=== PATIENT | female | born 1975 | race Caucasian/White ===

== ENCOUNTER → 2016-04-21 | Outpatient (CLI) | payer OTHER ==
[~2016-04-21] MED LIST: ALBUTEROL; ALBUTEROL 0.5ML INH; ALBUTEROL 0.5ML NEB; ALBUTEROL0.83 MG/ML INH; ALBUTEROL17 GM INH; ALBUTEROL20 ml INH; AMOXICILLIN500 M1 PO; BACTRIM DS TABL1 TA2 PO; CIPRO PO; COUGH SYRU100 MG/5 M PO; DOXYCYCLINE HY100 M1 PO; DOXYCYCLINE HY100 M3 PO; GLUCOPHAGE500 MG PO; GLUCOTROL PO; HUMIBID-LA600 MG PO; JANUVIA PO; JANUVIA25 MG PO; LORTAB 5/500 TA1 TA2 PO; METFORMIN HCL500 M1 PO; NEURONTIN300 MG PO; NEXIUM PO; PHENERGAN DM1 ML PO; PHENERGAN W/CO120 ML PO; PHENERGAN25 MG PO; PHENTERMINE PO; PREDNISONE PO; PREDNISONE10 MG/DOSE PO; PYRIDIUM PO; ROBITUSSIN COU118 ML PO; SIMVASTATIN10 MG PO; SYMBICORT80 INH; TYLENOL325 M1 PO; VICTOZA0.6 MG/0.1 SQ; VITAMIN D350000 UNIT PO; ZITHROMAX PO; [UNRECOGNIZED DRUG - OTHER]; [UNRECOGNIZED DRUG - OTHER] PO
--- NOTE | ~2016-04-21 | NM19 ---
[facility] A Service of [facility] RADIOLOGY TEXT RESULTS PATIENT: BOLIVAR APODACA LOCATION: [facility] : 75 UNIT #: [id number] AGE: [address]: Gavino Morris MD SEX: F ORDER DR: [id number] [facility] [address] [place], [place] [address] [id number] O MR#: [id number] Acc #: [id number] NAME: BOLIVAR APODACA : 1975 SEX: F STUDY DATE/TIME: 04/21/2016 10:04 UNIT: [facility] ROOM: STUDY DESCRIPTION: NM Gastric Emptying Study Attending Physician: Gavino Morris M.D. Referring Physician: Gavino Morris M.D. Ordering Physician: Gavino Morris M.D. Primary Care Physician: Tiki Simmons M.D. MEDICAL IMAGING REPORT This report is preliminary unless electronic signature is present EXAM Solid phase gastric emptying study. DATE 05/01/2016 HISTORY 40-year-old female with complaints of left upper quadrant and epigastric pain, nausea and vomiting after heavy meals, diarrhea, bloating and early satiety. Patient states symptoms began approximately 9 months ago but have gotten worse over the past [address] abdomen and pelvis with contrast 09/15/2015. FINDINGS Following the ingestion of 534 mcCi of technetium 99m sulfur colloid in 2 scrambled eggs with water, anterior and posterior planar images were obtained of the stomach and time-activity curve was generated. At 15 minutes, there is 20% emptying with 80% remaining. At 30 minutes, there is 41% emptying with 59% remaining. At 45 minutes, there is 58% emptying with 42% remaining. At 60 minutes, there is 73% emptying with 27% remaining. At this institution, normal gastric emptying is 60% or greater by 2 hours. This suggests normal gastric emptying at the 1 hour timeframe. Additionally, the calculated T1/2 emptying time is 38 minutes, with normal T1/2 emptying at this institution being less than 90 minutes. IMPRESSION Normal solid phase gastric emptying study. There is 73% emptying at 60 minutes, with a T1/2 emptying time of 38 minutes. [facility] A Service of [facility] RADIOLOGY TEXT RESULTS PATIENT: BOLIVAR APODACA LOCATION: [facility] : 75 UNIT #: [id number] AGE: [address]: Gavino Morris MD SEX: F ORDER DR: Dictated by... Dora Norwood M.D. THIS IS AN ELECTRONICALLY VERIFIED REPORT Dora Norwood M.D. at 04/21/2016 11:56 AM TO/angel TD: 04/21/2016 11:37 JOB #: [id number] MEDICAL IMAGING REPORT COPY
== END | disposition home or self-care (01) ==
LOC: CNUC 08:35
DX: R10.13 Epigastric pain (principal)
CPT/HCPCS: 78264; A9541

== ENCOUNTER 2016-10-05 16:55 | Emergency (ER) | payer OTHER ==
[~2016-10-05] VITALS: Ht 162.6 cm; Wt 81.6 kg
[2016-10-05 17:35] LABS: URINE SOURCE CLEAN CATCH
[2016-10-05 17:42] LABS: URINE APPEARANCE CLEAR; URINE BILIRUBIN NEG (NEG); URINE BLOOD NEG (NEG); URINE COLOR YELLOW; URINE GLUCOSE >1000 MG/DL (NEG); URINE KETONE NEG (NEG); URINE LEUKOCYTE ESTERASE NEG (NEG); URINE NITRATE NEG (NEG); URINE PROTEIN NEG (NEG); URINE UROBILINOGEN 0.2 MG/DL (NEG)
[2016-10-05 17:45] LABS: BASOPHIL# 0.1 X10e3 (0-0.3); BASOPHIL% 0.9 % (0-2.5); EOSINOPHIL# 0.4 X10e3 (0-0.7); EOSINOPHIL% 3.7 % (0.0-7.0); HEMATOCRIT 44.2 % (35.0-45.0); HEMOGLOBIN 14.5 gm/dL (12.0-16.0); LYMPHOCYTE# 2.6 X10e3 (1.0-3.5); LYMPHOCYTE% 23.7 % (17.0-45.0); MEAN CELL VOLUME 89.9 FL (83-96); MEAN CORPUSCULAR HEMOGLOBIN 29.6 PG (28-34); MEAN CORPUSCULAR HGB CONC 32.9 g/dL (30-36); MEAN PLATELET VOLUME 8.8 FL (6.5-11.5); MONOCYTE# 0.7 X10e3 (0-1.0); MONOCYTE% 6.4 % (3.0-12.0); NEUTROPHIL# 7.3 X10e3 (1.5-7.1); NEUTROPHIL% 65.3 % (40-75); PLATELET COUNT 281 X10e3 (140-420); RED BLOOD COUNT 4.91 X10e (3.90-5.30); RED CELL DISTRIBUTION WIDTH 13.1 % (11.0-15.5); WHITE BLOOD COUNT 11.1 X10e3 (4.0-10.5)
[2016-10-05 17:46] LABS: DIFF IND NO
[2016-10-05 17:51] LABS: CULTURE INDICATED? NO
[2016-10-05 18:04] LABS: ALBUMIN SERUM 3.7 g/dL (3.5-5.0); ALKALINE PHOSPHATASE 74 U/L (32-92); ALT (SGPT) 15 U/L (10-40); AMYLASE 20 U/L (0-46); AST (SGOT) 21 U/L (10-42); BILIRUBIN, DIRECT <0.1 mg/dL (0.0-0.2); BILIRUBIN,INDIRECT 0.4 mg/dL (0.0-0.9); BILIRUBIN,TOTAL 0.5 mg/dL (0.2-2.0); BLOOD UREA NITROGEN 9 mg/dL (9-23); BUN/CREATININE RATIO 12.85; CALCIUM SERUM 8.9 mg/dL (8.4-10.2); CARBON DIOXIDE 21 mmol/L (22-31); CHLORIDE 101 mmol/L (100-111); CREATININE SERUM 0.7 mg/dL (0.6-1.4); GLOM FILT RATE Estimated 107.6 mL/min (>60); GLUCOSE FASTING 360 mg/dL (70-110); LIPASE 25 U/L (22-51); PROTEIN TOTAL SERUM 6.7 g/dL (6.0-8.3); SODIUM 134 mmol/L (135-145)
== END 2016-10-05 18:30 | disposition left against medical advice (07) ==
LOC: CED 16:55
DX: Z53.21 Procedure and treatment not carried out due to patient leaving prior to being seen by health care provider (principal)
CPT/HCPCS: 80048; 80076; 81003; 82150; 83690; 84703; 85025

== ENCOUNTER 2016-10-05 20:10 | Emergency (ER) | payer OTHER ==
--- NOTE | ~2016-10-05 | CT2 ---
[facility] A Service of [facility] RADIOLOGY TEXT RESULTS PATIENT: BOLIVAR APODACA LOCATION: [facility] : 75 UNIT #: [id number] AGE: [address]: Bruce Aldana DO SEX: F ORDER DR: [id number] [facility] [address] [place], [place] [address] [id number] E MR#: [id number] Acc #: [id number] NAME: BOLIVAR APODAAC : 1975 SEX: F STUDY DATE/TIME: 10/06/2016 1:09 UNIT: [facility] ROOM: STUDY DESCRIPTION: CT Abd and Pelv W Cont Attending Physician: Bruce Aldana D.O. Ordering Physician: Bruce Aldana D.O. Primary Care Physician: Tiki Simmons M.D. MEDICAL IMAGING REPORT This report is preliminary unless electronic signature is present EXAM CT abdomen and pelvis with contrast 10/06/2016 HISTORY 41-year-old female in the ED complaining of 6-day history of generalized abdomen pain with nausea, vomiting and diarrhea. TECHNIQUE CT examination of the abdomen and pelvis was performed with IV contrast. GI contrast was not ordered, limiting evaluation of the GI tract. This CT examination was performed with one or more of the following radiation dose reduction techniques: automatic exposure control, adjustment of mA and/or kV according to patient size, and iterative reconstruction. FINDINGS ABDOMEN: Liver, pancreas and spleen are normal in size and appearance. No gallbladder distension or bile duct dilatation. Both kidneys are normal in size and appearance with no evidence of urinary obstruction. Normal-caliber abdominal aorta. Small bowel and colon are normal in caliber and appearance, as imaged. The appendix is normal. PELVIS: Uterus, ovaries, urinary bladder and rectum are within normal limits. A transsacral bladder stimulator device is in place. No inguinal hernia or abdominal wall hernia. Limited lung base images show no active disease in the lower chest. IMPRESSION Negative CT examination of the abdomen and pelvis. [facility] A Service of [facility] RADIOLOGY TEXT RESULTS PATIENT: BOLIVAR APODACA [id number] 75 UNIT #: [id number] AGE: [address]: Bruce Aldana DO SEX: F ORDER DR: Dictated by... Hank Cornell M.D. THIS IS AN ELECTRONICALLY VERIFIED REPORT Hank Cornell M.D. at 10/06/2016 9:48 PM JENNIFER/katie TD: 10/06/2016 07:25 JOB #: [id number] MEDICAL IMAGING REPORT Page 1 of 1 COPY
[2016-10-05 21:58] LABS: POC - CKMB <1.0 ng/mL (0.0-7.9); POC - TROPONIN <0.05 ng/mL (<=0.05)
[2016-10-05 22:08] LABS: URINE SOURCE CLEAN CATCH
[2016-10-05 22:19] LABS: URINE APPEARANCE CLEAR; URINE BILIRUBIN NEG (NEG); URINE BLOOD NEG (NEG); URINE COLOR YELLOW; URINE GLUCOSE >1000 MG/DL (NEG); URINE KETONE NEG (NEG); URINE LEUKOCYTE ESTERASE 1+ (NEG); URINE NITRATE NEG (NEG); URINE PH 5.5 (5-8); URINE PROTEIN NEG (NEG); URINE UROBILINOGEN 0.2 MG/DL (NEG)
[2016-10-05 22:22] LABS: CULTURE INDICATED? YES; URINE BACTERIA AUWI 1+ (NEGATIVE); URINE SQUAMOUS EPITHELIAL CELL OCC /[HPF]
[2016-10-05 22:23] LABS: URBCS1 AUWI NEG /[HPF] (0-2)
[2016-10-05 22:27] LABS: BASOPHIL# 0.1 X10e3 (0-0.3); BASOPHIL% 0.6 % (0-2.5); DIFF IND NO; EOSINOPHIL# 0.4 X10e3 (0-0.7); EOSINOPHIL% 3.1 % (0.0-7.0); HEMOGLOBIN 13.9 gm/dL (12.0-16.0); LYMPHOCYTE# 3.3 X10e3 (1.0-3.5); LYMPHOCYTE% 27.5 % (17.0-45.0); MEAN CELL VOLUME 89.2 FL (83-96); MEAN CORPUSCULAR HEMOGLOBIN 30.1 PG (28-34); MEAN CORPUSCULAR HGB CONC 33.8 g/dL (30-36); MEAN PLATELET VOLUME 8.6 FL (6.5-11.5); MONOCYTE# 0.9 X10e3 (0-1.0); MONOCYTE% 7.1 % (3.0-12.0); NEUTROPHIL# 7.5 X10e3 (1.5-7.1); NEUTROPHIL% 61.7 % (40-75); PLATELET COUNT 263 X10e3 (140-420); RED CELL DISTRIBUTION WIDTH 13.2 % (11.0-15.5); WHITE BLOOD COUNT 12.1 X10e3 (4.0-10.5)
[2016-10-05 22:31] LABS: POC - CKMB <1.0 ng/mL (0.0-7.9); POC - TROPONIN <0.05 ng/mL (<=0.05)
[2016-10-06 00:23] LABS: ALBUMIN SERUM 3.5 g/dL (3.5-5.0); ALKALINE PHOSPHATASE 72 U/L (32-92); ALT (SGPT) 14 U/L (10-40); AST (SGOT) 11 U/L (10-42); BILIRUBIN,TOTAL 0.3 mg/dL (0.2-2.0); BLOOD UREA NITROGEN 9 mg/dL (9-23); CALCIUM SERUM 8.4 mg/dL (8.4-10.2); CARBON DIOXIDE 23 mmol/L (22-31); CHLORIDE 105 mmol/L (100-111); CREATININE SERUM 0.4 mg/dL (0.6-1.4); GLOM FILT RATE Estimated 129.4 mL/min (>60); GLUCOSE FASTING 177 mg/dL (70-110); LIPASE 27 U/L (22-51); POTASSIUM 4.1 mmol/L (3.5-5.1); PROTEIN TOTAL SERUM 6.3 g/dL (6.0-8.3); SODIUM 136 mmol/L (135-145)
[2016-10-06 00:27] LABS: BILIRUBIN, DIRECT <0.1 mg/dL (0.0-0.2); BILIRUBIN,INDIRECT 0.2 mg/dL (0.0-0.9)
== END 2016-10-06 02:05 | disposition left against medical advice (07) ==
LOC: CED 20:10
PROVIDERS: Emergency Medicine
DX: R10.84 Generalized abdominal pain (principal); E11.65 Type 2 diabetes mellitus with hyperglycemia; R11.2 Nausea with vomiting, unspecified; J44.9 Chronic obstructive pulmonary disease, unspecified; K21.9 Gastro-esophageal reflux disease without esophagitis; F17.200 Nicotine dependence, unspecified, uncomplicated; Z98.890 Other specified postprocedural states
CPT/HCPCS: 36415; 74177; 80048; 80076; 81003; 82553; 83690; 84484; 84703; 85025; 85379; 87086; 96361; 96372; 96374; 96375; 99284; J0500; J2270; J2405; J2550; Q9967